=== PATIENT | male | born 2000 | race Caucasian/White ===

== ENCOUNTER 2019-02-26 05:23 | Emergency (ER) | payer SELFPAY ==
[~2019-02-26] VITALS: Ht 180.3 cm; Wt 71.9 kg
[2019-02-26 07:00] VITALS: BP 136/69
[2019-02-27 05:08] LABS: RAPID PLASMA REAGIN Non Reactive (Non Reactive)
== END 2019-02-26 07:00 | disposition home or self-care (01) ==
LOC: ED 05:23
PROVIDERS: Emergency Medicine
DX: N48.89 Other specified disorders of penis (principal); Z20.6 Contact with and (suspected) exposure to human immunodeficiency virus [HIV]
CPT/HCPCS: 87491; 87591; J0696